=== PATIENT | female | born 1970 | race Caucasian/White ===

== ENCOUNTER → 2017-01-01 | Outpatient (CLI) | payer BC, MEDICAID, OTHER | LOC: MW.CHOBGYN 13:21 | PROVIDERS: ATTEND Nurse Practitioner Women's Health | DX: R10.2 Pelvic and perineal pain (principal); R10.31 Right lower quadrant pain; R10.32 Left lower quadrant pain; L40.0 Psoriasis vulgaris; M25.529 Pain in unspecified elbow; M25.569 Pain in unspecified knee | CPT/HCPCS: 36415; 81001; 85025; 85652; 86038; 86140; 86200; 86430; 93005 ==

== ENCOUNTER → 2017-01-02 | Outpatient (CLI) | payer OTHER, BC ==
--- NOTE | 2017-01-29 10:48 | BTN ---
SERVICE DATE: 01/29/2017 PATIENT #: [id number] #: NOT DICTATED IDENTIFICATION: Arin is a 47-year-old female, who is here today for a followup visit. I last saw her in August. CURRENT MEDICATIONS: Effexor XR 300 mg a day, clonazepam 1 mg b.i.d. p.r.n., Abilify 10 mg a day and Seroquel 50 mg at bedtime. ALLERGIES: She has an allergy to penicillin. CHIEF COMPLAINT: "Not so good." HISTORY OF PRESENT ILLNESS: Arin states that over the last month or two she started to feel more depressed, having a hard time getting things done, no energy, just wanting to sleep all the time. In the last 1-2 weeks, she has just been crying a lot. She feels that she needs something for the depression. Her PHQ-9 score is 25. RODNEY- 7 score is 17. She does not feel so anxious or that she has anxiety so much that she just feels very depressed. No suicidal or homicidal ideation. She is currently caring for two grandchildren ages 2 and 7 and then her two other children, ages 11 and 12, so she is busy all day long and she said it makes hard when she is depressed. She sleeps well. She said she sleeps too much. REVIEW OF SYSTEMS: No major illnesses. She does take Celebrex for chronic pain as well as she has an ointment that she uses for psoriasis when it is active and she also has some GERD. PHYSICAL EXAMINATION: VITAL SIGNS: Blood pressure is 124/71, heart rate is 85, respirations 16, temperature 98.1, weight is 202.8 pounds, height 70 inches. GENERAL APPEARANCE: Arin is a well-developed, well-nourished woman, who appears her stated age. She is very well groomed. Gait and station are normal. Her speech is clear and appropriate. I do not see any perseverating. Her thought processes are logical and linear. Associations are intact. She denies hallucinations. I do not see any delusions. Her mood is down. Her affect is somewhat flat. Insight and judgment appear good. MENTAL STATUS EXAM: She is alert and oriented x3. Recent and remote memory appear intact. Attention span is fairly good. Language is good. Fund of knowledge appears adequate for developmental age. DIAGNOSES: Fountain I: Bipolar disorder, F31.30. Anxiety F41.8. Fountain II : No diagnosis. Fountain III: She has some psoriasis and chronic pain. Fountain IV: Stressors. She cannot really identify any real stressors other than she has 4 children every day that she cares for. Fountain V: Current Global Assessment of Functioning score 67. TREATMENT PLAN: In talking to Arin about all the options, we discussed Wellbutrin and she said she has taken that before with very good results. I am going to add a little Wellbutrin XL 150 mg daily to her medications. Because she is sleepy and wants to sleep all the time, I recommended that she hold the Seroquel at bedtime for now and see how she does. I want to see her back in 1 month. If she continues to get worse over the next week or two, I recommended she call me and we can maybe do some trouble shooting over the phone, otherwise I am going to see her back in 1 month. /[id number]
== END ==
LOC: MW.CHOBGYN 10:36
PROVIDERS: ATTEND Nurse Practitioner Women's Health
DX: R10.31 Right lower quadrant pain (principal); R10.32 Left lower quadrant pain; K92.1 Melena
CPT/HCPCS: 83630; 87338

== ENCOUNTER 2017-02-12 10:32 | Day surgery (SDC) | payer BC, OTHER ==
[~2017-02-12 10:32] MED LIST: Lactated Ringers 1,000 ML IV SCH
--- NOTE | 2017-02-12 11:35 | PCM.PREANE ---
Preanesthetic Assessment - Anesthesia/Transfusion/Family Hx Anesthesia History: Prior Anesthesia Without Reaction Family History of Anesthesia Reaction: No Transfusion History: No Prior Transfusion(s) - Review of Systems General: No Symptoms Pulmonary: No Symptoms Cardiovascular: No Symptoms Gastrointestinal: No symptoms Neurological: No Symptoms Other: Reports: None - Physical Assessment NPO Status Date: 02/11/17 O2 Sat by Pulse Oximetry: 96 Respiratory Rate: 16 Vital Signs: Last Vital Signs Temp 36.8 C 02/12/17 10:44 Pulse 87 02/12/17 10:44 Resp 16 02/12/17 10:44 BP 137/63 02/12/17 10:44 Pulse Ox 96 02/12/17 10:44 Height: 1.75 m Weight: 89.358 kg ASA Class: 2 Mental Status: Alert & Oriented x3 Airway Class: Mallampati = 2 Dentition: Reports: Bridge (lower central incisors) ROM/Head Extension: Full Lungs: Clear to auscultation, Normal respiratory effort Cardiovascular: Regular Rate, Regular Rhythm - Allergies Allergies/Adverse Reactions: Allergies Allergy/AdvReac Type Severity Reaction Status Date / Time codeine Allergy Nausea Verified 06/10/16 17:36 Penicillins Allergy Rash Verified 06/10/16 17:36 - Anesthesia Plan Pre-Op Medication Ordered: None - Acknowledgements Anesthesia Type Planned: MAC Pt an Appropriate Candidate for the Planned Anesthesia: Yes Alternatives and Risks of Anesthesia Discussed w Pt/Guardian: Yes Pt/Guardian Understands and Agrees with Anesthesia Plan: Yes Additional Comments: PMH: bipolar, gerd, psoriasis, migraine, smoker. 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: Musculoskeletal History: Reports: Arthritis, Fracture Other Musculoskeletal History: right wrist Neurological History: Reports: Migraines Psychiatric History: Reports: Anxiety, Bipolar, Depression Endocrine/Metabolic History: Reports: None Hematologic History: Reports: Anemia Immunologic History: Reports: None Oncologic (Cancer) History: Reports: None Dermatologic History: Reports: Eczema, Psoriasis Other Dermatologic History: elbows and legs - Infectious Disease History Infectious Disease History: Reports: Chicken Pox - Past Surgical History Head Surgeries/Procedures: Reports: None HEENT Surgical History: Reports: None Cardiovascular Surgical History: Reports: None Respiratory Surgical History: Reports: None GI Surgical History: Reports: Appendectomy, Colonoscopy Female Surgical History: Reports: Breast Biopsy, D&C, Hysterectomy, Salpingo- Oophorectomy Neurological Surgical History: Reports: None Musculoskeletal Surgical History: Reports: None Oncologic Surgical History: Reports: None Dermatological Surgical History: Reports: None - SUBSTANCE USE Smoking Status *Q: Current Every Day Smoker Tobacco Use Within Last Twelve Months: Cigarettes Second Hand Smoke Exposure: Yes Days Per Week of Alcohol Use: 2 Number of Drinks Per Day: 2 Total Drinks Per Week: 4 Recreational Drug Use History: No - HOME MEDS Home Medications: Home Meds Venlafaxine [Effexor XR] 2 tab PO QAM 01/23/16 [History] QUEtiapine Fumarate [Seroquel] 50 mg PO BEDTIME 02/07/16 [History] ARIPiprazole [Abilify] 10 mg PO DAILY 02/09/17 [History] Celecoxib 200 mg PO DAILY 02/09/17 [History] ClonazePAM [KlonoPIN] 1 tab PO BID PRN 02/09/17 [History] Pantoprazole Sodium 40 mg PO DAILY 02/09/17 [History] Triamcinolone Acetonide [Triamcinolone Acetonide 0.5%] 1 applic TOP BID PRN [History] Fluocinonide [Lidex 0.05% Crm] 1 applic TOP ASDIRECTED 02/10/17 [History] - CURRENT (IN HOUSE) MEDS Current Meds: Current Medications Lactated Ringer's (Ringers, Lactated) 1,000 mls @ 125 mls/hr IV ASDIRECTED [facility] Last Admin: 02/12/17 10:55 Dose: 125 mls/hr
[2017-02-12] MEDS ORDERED: Propofol 200 MG/20 ML SDV ONE ×2 (11:57→12:48)
[2017-02-12] MEDS ORDERED: Lidocaine 2% 5 ML SDV ONE (11:57)
[2017-02-12] MEDS ORDERED: fentaNYL 100 MCG/2 ML SDV ONE ×2 (11:58→12:10)
[2017-02-12] MEDS ORDERED: Neostigmine Methylsulfate 1 MG/ML 5 ML Syringe ONE (12:04)
--- NOTE | 2017-02-12 13:10 | PCM.OPNOTE ---
- General Post-Op/Procedure Note Date of Surgery/Procedure: 02/12/17 Operative Procedure(s): egd w bx. colonoscopy w bx Findings: see dict [id number] dxc Pre Op Diagnosis: abd pain Post-Op Diagnosis: gastritis/gerd and hemorrhoid Anesthesia Technique: Moderate sedation Primary Surgeon: Nadir Carranza Pathology: egd bx random colon bx Complications: None Condition: Good
--- NOTE | 2017-02-12 13:27 | PCM.POSTAN ---
POST ANESTHESIA ASSESSMENT - MENTAL STATUS Mental Status: alert, oriented - RESPIRATORY Respiratory Status: respiratory rate WNL, airway patent, O2 saturation stable - CARDIOVASCULAR CV Status: pulse rate WNL, blood pressure stable - GASTROINTESTINAL GI Status: no symptoms - PAIN Pain Score: 0 - POST OP HYDRATION Hydration Status: adequate & stable
--- NOTE | 2017-02-12 13:38 | OR ---
SURGEON: Nadir Carranza MD DATE OF PROCEDURE: 02/12/2017 PREOPERATIVE DIAGNOSES: Abdominal pain and change in bowel habits. POSTOPERATIVE DIAGNOSES: Acid reflux and gastritis and hemorrhoids. PROCEDURES PERFORMED: 1. Esophagogastroduodenoscopy with biopsy. 2. Colonoscopy with biopsy. DESCRIPTION OF PROCEDURE: EGD: The patient was taken to the endoscopy room, and with the [employer]ROL POLICE SERGEANT, Diprivan was administered. A well-lubricated EGD scope was gently inserted through the oropharynx, down the esophagus, passing through the gastroesophageal junction, into the stomach. The mucosa was examined upon the passage. Any etiology will be noted. Once in the stomach, we continued to advance to the distal antrum, passed through the pylorus into the second portion of the duodenum. Again, the mucosa was examined for any abnormality and etiology. The scope was then retrieved back to the stomach and then retroflexed to look at the fundus of the stomach. If a biopsy was indicated, we will biopsy the antrum, body, and gastroesophageal junction. The air will be sucked out while the scope is retrieved to reduce the patient's discomfort. The patient tolerated the procedure well. There were no intraoperative complications. Dr. Carranza was present through the whole procedure. Prior to surgery, a time-out had been called, the patient identified, procedure identified and antibiotic administered. Colonoscopy: The patient was taken to the endoscopy room. A time out was called, patient identified, and procedure identified. Diprivan was then administrated. Patient went from awake to sleep, hearing doctor talking or door closing is normal. Perineum inspection and digital examination were then performed. A well-lubricated colonoscope was gently inserted through the rectum, advanced past the rectosigmoid junction, the descending colon, splenic flexure, transverse colon, hepatic flexure, ascending colon, arrived to the cecum. Cecum was identified as dictated in the finding. Then the scope was carefully withdrawn while attention was paid to the mucosal surface for any abnormality. Air will be sucked out during the scope withdrawal. At the rectum, retroflexed to examine any rectal diseases, fistula or hemorrhoids. During mucosal examination, random bx for abd pain performed. Patient tolerated procedure well. There were no intraoperative complications, and Dr. Carranza was present throughout the whole procedure. FINDINGS: EGD: 1. The patient is easily sedated with [employer]ROL POLICE SERGEANT and Diprivan. The patient is soundly snoring. 2. The patient's oropharynx and proximal esophagus was free of disease and distal esophagus at GE junction at 40, shows moderate amount of salmon- colored change consistent with acid reflux and little bit inflamed, consistent with esophagitis. The stomach rugae is normal in appearance. There is no bile, food, or blood in the stomach, rugae is normal in appearance. Antrum was slightly inflamed and there was no ulceration of blood observed and duodenum was grossly normal in appearance and the scope retrieved back to the stomach and then retroflexed to look at the fundus of stomach, there is no hiatal hernia or other etiology. Biopsy was done at antrum, body, GE junction at 40 and sucked out the air while scope pulling out. Colonoscopy: 1. The patient is easily sedated with [employer] POLICE SERGEANT and Diprivan. The patient is soundly snoring. 2. Bowel prep is left to be desirable. There were a couple of stool ball, semi-formed stool ball and moderate amount of liquid stool, but this is a compromised study. The patient's colon was rather straight forward. Cecum indicated by ileocecal fold, one-to-one indentation, appendix orifice, and light immittance and mucosa examined upon scope pulling out. The patient does not have diverticulosis, polyp, mass, growth, inflammation, stricture, ulceration, bleeding, AV malformation, none of those. The patient has moderate internal hemorrhoid and no external hemorrhoids. Random biopsy was done for pain. The patient would benefit from repeat colonoscopy 10 years from today or if the biopsy results all clinical situation suggests otherwise. The patient would benefit from repeat colonoscopy 10 years from today. As always, thank you for the kind referral. ASHLEY STANTON /[id number] DESHAWN
--- NOTE | 2017-02-12 14:00 | PCM48HPAN ---
Post Anesthesia Note - EVALUATION WITHIN 48HRS OF ANESTHETIC Vital Signs in Normal Range: Yes Patient Participated in Evaluation: Yes Respiratory Function Stable: Yes Airway Patent: Yes Cardiovascular Function Stable: Yes Hydration Status Stable: Yes Pain Control Satisfactory: Yes Nausea and Vomiting Control Satisfactory: Yes Mental Status Recovered: Yes
[2017-02-12 14:52] VITALS: BP 137/69
== END 2017-02-12 13:55 | disposition home or self-care (01) ==
LOC: MW.SDS 10:32
PROVIDERS: ATTEND Surgery
PROC: 0DB48ZX Excision of Esophagogastric Junction, Via Natural or Artificial Opening Endoscopic, Diagnostic (ICD-10-PCS; principal; 2017-02-12)
PROC: 0DB68ZX Excision of Stomach, Via Natural or Artificial Opening Endoscopic, Diagnostic (ICD-10-PCS; 2017-02-12)
PROC: 0DBE8ZX Excision of Large Intestine, Via Natural or Artificial Opening Endoscopic, Diagnostic (ICD-10-PCS; 2017-02-12)
DX: K29.50 Unspecified chronic gastritis without bleeding (principal); K21.0 Gastro-esophageal reflux disease with esophagitis; K64.8 Other hemorrhoids; M19.90 Unspecified osteoarthritis, unspecified site; J40 Bronchitis, not specified as acute or chronic; F32.9 Major depressive disorder, single episode, unspecified; F17.210 Nicotine dependence, cigarettes, uncomplicated; G43.909 Migraine, unspecified, not intractable, without status migrainosus; F41.9 Anxiety disorder, unspecified; Z88.0 Allergy status to penicillin; Z88.5 Allergy status to narcotic agent; Z79.899 Other long term (current) drug therapy; Z90.49 Acquired absence of other specified parts of digestive tract; Z90.710 Acquired absence of both cervix and uterus; Z90.722 Acquired absence of ovaries, bilateral; Z90.79 Acquired absence of other genital organ(s); Z98.890 Other specified postprocedural states
CPT/HCPCS: 43239; 45380; J3010; J7120; 00740; 88305; 88312; J2704

== ENCOUNTER 2017-06-01 17:54 | Emergency (ER) | payer BC, OTHER ==
--- NOTE | 2017-06-01 18:42 | EDM.PDOC ---
ED HPI GENERAL MEDICAL PROBLEM - General Chief Complaint: Lower Extremity Injury/Pain Stated Complaint: PT HURT RT FOOT Time Seen by Provider: 06/01/17 18:40 Source of Information: Reports: Patient History Limitations: Reports: No Limitations - History of Present Illness INITIAL COMMENTS - FREE TEXT/NARRATIVE: HISTORY AND PHYSICAL: []37-year-old female presenting with right heel pain History of Present Illness: []Patient complains of pain pain to her heel but it does extend up to the ball of her foot as well Review of Systems: As per history of present illness and below otherwise all systems reviewed and negative. Past medical history: As per history of present illness and as reviewed below otherwise noncontributory. Surgical history: As per history of present illness and as reviewed below otherwise noncontributory. Social history: No reported history of drug or alcohol abuse. Family history: As per history of present illness and as reviewed below otherwise noncontributory. Physical exam: Alert and oriented female who is answering questions appropriately in full sentences without any shortness of breath she is nontoxic in appearance. HEENT: Atraumatic, normocehpalic, pupils reactive, negative for conjunctival pallor or scleral icterus, mucous membranes moist, throat clear, neck supple, nontender, trachea midline. Lungs: Clear to auscultation, breath sounds equal bilaterally, chest non tender. Heart: S1S2, regular, negative for clicks, rubs, or JVD. Abdomen: Soft, nondistended, nontender. Negative for masses or hepatossplenmegaly. Negative for costovertebral tenderness. Pelvis: Stable nontender. Genitourinary: Deferred. Rectal: Deferred Extremities: Atraumatic, negative for cords or calf pain. Exquisite pain with light palpation to the center of her heel. Neurovascular unremarkable. Neuro: Awake, alert, oriented. Cranial nerves II through XII unremarkable. Cerebellum unremarkable. Motor and sensory unremarkable throughout. Exam nonfocal. Diagnostics: [X-ray CALCANEAL right foot] Therapeutics: [] Impression: [Calcaneal spur] Plan: []Discharged to home Hydrocodone Refer to podiatry Definitive disposition and diagnosis as appropriate pending reevaluation and review of above. Right Heel Pain Score (Numeric/FACES): 9 - Related Data Allergies Allergy/AdvReac Type Severity Reaction Status Date / Time codeine Allergy Nausea Verified 06/01/17 18:47 Penicillins Allergy Rash Verified 06/01/17 18:47 Home Meds: Home Meds Venlafaxine [Effexor XR] 2 tab PO QAM 01/23/16 [History] QUEtiapine Fumarate [Seroquel] 50 mg PO BEDTIME 02/07/16 [History] ARIPiprazole [Abilify] 10 mg PO DAILY 02/09/17 [History] Celecoxib 200 mg PO DAILY 02/09/17 [History] ClonazePAM [KlonoPIN] 1 tab PO BID PRN 02/09/17 [History] Pantoprazole Sodium 40 mg PO DAILY 02/09/17 [History] Triamcinolone Acetonide [Triamcinolone Acetonide 0.5%] 1 applic TOP BID PRN [History] Fluocinonide [Lidex 0.05% Crm] 1 applic TOP ASDIRECTED 02/10/17 [History] Past Medical History Other HEENT History: has permanent lower dental retainer Cardiovascular History: Reports: None Respiratory History: Reports: None Gastrointestinal History: Reports: GERD Genitourinary History: Reports: None 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: Musculoskeletal History: Reports: Arthritis, Fracture Other Musculoskeletal History: right wrist Neurological History: Reports: Migraines Psychiatric History: Reports: Anxiety, Bipolar, Depression Endocrine/Metabolic History: Reports: None Hematologic History: Reports: Anemia Immunologic History: Reports: None Oncologic (Cancer) History: Reports: None Dermatologic History: Reports: Eczema, Psoriasis Other Dermatologic History: elbows and legs - Infectious Disease History Infectious Disease History: Reports: Chicken Pox - Past Surgical History Head Surgeries/Procedures: Reports: None HEENT Surgical History: Reports: None Cardiovascular Surgical History: Reports: None Respiratory Surgical History: Reports: None GI Surgical History: Reports: Appendectomy, Colonoscopy Female Surgical History: Reports: Breast Biopsy, D&C, Hysterectomy, Salpingo- Oophorectomy Neurological Surgical History: Reports: None Musculoskeletal Surgical History: Reports: None Oncologic Surgical History: Reports: None Dermatological Surgical History: Reports: None Social & Family History - Family History Family Medical History: Noncontributory HEENT: Reports: Cataract, Hearing Impairment Cardiac: Reports: High Cholesterol, [place] Respiratory: Reports: Asthma GI: Reports: None : Reports: UTI, Recurrent OBGYN: Reports: Musculoskeletal: Reports: None Neurological: Reports: Seizure Psychiatric: Reports: Anxiety, Bipolar, Depression Endocrine/Metabolic: Reports: Diabetes, Type I, Diabetes, type II Hematologic: Reports: Anemia Immunologic: Reports: None Dermatologic: Reports: Eczema Oncologic: Reports: Thyroid - Tobacco Use Smoking Status *Q: Current Every Day Smoker Years of Tobacco use: 30 Packs/Tins Daily: 1 Used Tobacco, but Quit: No Second Hand Smoke Exposure: Yes - Caffeine Use Caffeine Use: Reports: Coffee - Alcohol Use Days Per Week of Alcohol Use: 2 Number of Drinks Per Day: 2 Total Drinks Per Week: 4 - Recreational Drug Use Recreational Drug Use: No Drug Use in Last 12 Months: No - Living Situation & Occupation Living situation: Reports: Review of Systems - Review of Systems Review Of Systems: ROS reveals no pertinent complaints other than HPI. ED EXAM, GENERAL - Physical Exam Exam: See Below (See dictation) Course - Vital Signs Last Recorded V/S: Last Vital Signs Temp 36.4 C 06/01/17 18:10 Pulse 78 06/01/17 18:10 Resp 18 06/01/17 18:10 BP 141/63 H 06/01/17 18:10 Pulse Ox 98 06/01/17 18:10 - Orders/Labs/Meds Orders: Active Orders 24 hr Category Date Time Status Calcaneous Rt [CR] Stat Exams 06/01/17 18:37 Taken Departure - Departure Time of Disposition: 19:35 Disposition: Home, Self-Care 01 Condition: Good Clinical Impression: Calcaneal spur of right foot - Discharge Information Instructions: Pain Medicine Instructions, [id number] Referrals: PCP,None [Primary Care Provider] - Forms: ED Department Discharge Additional Instructions: The following information is given to patients seen in the emergency department who are being discharged to home. This information is to outline your options for follow-up care. We provide all patients seen in our emergency department with a follow-up referral. The need for follow-up, as well as the timing and circumstances, are variable depending upon the specifics of your emergency department visit. If you don't have a primary care physician on staff, we will provide you with a referral. We always advise you to contact your personal physician following an emergency department visit to inform them of the circumstance of the visit and for follow-up with them and/or the need for any referrals to a consulting specialist. The emergency department will also refer you to a specialist when appropriate. This referral assures that you have the opportunity for followup care with a specialist. All of these measure are taken in an effort to provide you with optimal care, which includes your followup. Under all circumstances we always encourage you to contact your private physician who remains a resource for coordinating your care. When calling for followup care, please make the office aware that this follow-up is from your recent emergency room visit. If for any reason you are refused follow-up, please contact the [facility] emergency department at and asked to speak to the emergency department charge nurse. Follow-up with podiatry [facility] - Podiatry [address] [place] [id number] Please call for an appointment Prescription written for hydrocodone/APAP 5/325 one every 4-6 hours as needed for pain #10 no refill - My Orders Last 24 Hours: My Active Orders 06/01/17 18:37 Calcaneous Rt [CR] Stat - Assessment/Plan Last 24 Hours: My Active Orders 06/01/17 18:37 Calcaneous Rt [CR] Stat
[2017-06-01 19:53] VITALS: BP 140/73
--- NOTE | 2017-06-02 10:05 | CR ---
EXAM DATE: 06/01/17 PATIENT'S AGE: 47 Patient: VAL GALLO Facility: [place], [place] Site . Site : 1970 Study: XRay Extremity Right CALCANEOUS [id number]/[id number] 7:02:35 PM Ordering Physician: Doctor Krause Final Report: INDICATION: Heel pain. TECHNIQUE: Two views of the right calcaneus. COMPARISON: None. IMPRESSION: No fracture. No destructive bony lesion is identified. Joint spaces and bony alignment are within normal limits. Small plantar calcaneal enthesophyte. Dictated by Manolo Cook MD @ 06/01/2017 7:29:12 PM Dictated by: Manolo Cook MD @ 06/01/2017 19:29:23 (Electronic Signature) Report Signed by Proxy. DESHAWN
== END 2017-06-01 19:45 | disposition home or self-care (01) ==
LOC: MW.ED 17:54
DX: M77.31 Calcaneal spur, right foot (principal); K21.9 Gastro-esophageal reflux disease without esophagitis; F17.210 Nicotine dependence, cigarettes, uncomplicated; Z88.5 Allergy status to narcotic agent; Z88.0 Allergy status to penicillin; Z79.899 Other long term (current) drug therapy
CPT/HCPCS: 73650-26-RT; 73650-RT; 99283

== ENCOUNTER 2017-06-24 14:46 | Emergency (ER) | payer BC, OTHER ==
[2017-06-24] MEDS ORDERED: Acetaminophen/HYDROcodone 325-10 MG Tab PO ONE (15:04)
--- NOTE | 2017-06-24 15:07 | EDM.PDOC ---
ED HPI GENERAL MEDICAL PROBLEM - General Chief Complaint: Respiratory Problem Stated Complaint: TROUBLE BREATHING/BACK PAIN Time Seen by Provider: 06/24/17 15:02 - History of Present Illness INITIAL COMMENTS - FREE TEXT/NARRATIVE: HISTORY AND PHYSICAL: History of present illness: Patient is 47-year-old female history of bipolar disorder presents a concern of left upper back pain it's worse with breathing and movement she does not recall any trauma she is a smoker she denies cough denies nausea vomiting fever chills denies history of DVT or PE Review of systems: As per history of present illness and below otherwise all systems reviewed and negative. Past medical history: As per history of present illness and as reviewed below otherwise noncontributory. Surgical history: As per history of present illness and as reviewed below otherwise noncontributory. Social history: No reported history of drug or alcohol abuse. Family history: As per history of present illness and as reviewed below otherwise noncontributory. Physical exam: HEENT: Atraumatic, normocephalic, pupils reactive, negative for conjunctival pallor or scleral icterus, mucous membranes moist, throat clear, neck supple, nontender, trachea midline. Lungs: Clear to auscultation, breath sounds equal bilaterally, paravertebral tenderness at the upper thoracic spine region no vertebral body or point tenderness Heart: S1S2, regular, negative for clicks, rubs, or JVD. Abdomen: Soft, nondistended, nontender. Negative for masses or hepatosplenomegaly. Negative for costovertebral tenderness. Pelvis: Stable nontender. Genitourinary: Deferred. Rectal: Deferred. Extremities: Atraumatic, negative for cords or calf pain. Neurovascular unremarkable. Neuro: Awake, alert, oriented. Cranial nerves II through XII unremarkable. Cerebellum unremarkable. Motor and sensory unremarkable throughout. Exam nonfocal. Diagnostics: Chest x-ray Therapeutics: Hydrocodone 10 mg by mouth Impression: #1 upper back pain Definitive disposition and diagnosis as appropriate pending reevaluation and review of above. - Related Data Allergies Allergy/AdvReac Type Severity Reaction Status Date / Time codeine Allergy Nausea Verified 06/01/17 18:47 Penicillins Allergy Rash Verified 06/01/17 18:47 Home Meds: Home Meds Venlafaxine [Effexor XR] 2 tab PO QAM 01/23/16 [History] QUEtiapine Fumarate [Seroquel] 50 mg PO BEDTIME 02/07/16 [History] ARIPiprazole [Abilify] 10 mg PO DAILY 02/09/17 [History] Celecoxib 200 mg PO DAILY 02/09/17 [History] ClonazePAM [KlonoPIN] 1 tab PO BID PRN 02/09/17 [History] Pantoprazole Sodium 40 mg PO DAILY 02/09/17 [History] Triamcinolone Acetonide [Triamcinolone Acetonide 0.5%] 1 applic TOP BID PRN [History] Fluocinonide [Lidex 0.05% Crm] 1 applic TOP ASDIRECTED 02/10/17 [History] Past Medical History Other HEENT History: has permanent lower dental retainer Cardiovascular History: Reports: None Respiratory History: Reports: None Gastrointestinal History: Reports: GERD Genitourinary History: Reports: None [employer]GER [employer] History: Reports: Musculoskeletal History: Reports: Arthritis, Fracture Other Musculoskeletal History: right wrist Neurological History: Reports: Migraines Psychiatric History: Reports: Anxiety, Bipolar, Depression Endocrine/Metabolic History: Reports: None Hematologic History: Reports: Anemia Immunologic History: Reports: None Oncologic (Cancer) History: Reports: None Dermatologic History: Reports: Eczema, Psoriasis Other Dermatologic History: elbows and legs - Infectious Disease History Infectious Disease History: Reports: Chicken Pox - Past Surgical History Head Surgeries/Procedures: Reports: None HEENT Surgical History: Reports: None Cardiovascular Surgical History: Reports: None Respiratory Surgical History: Reports: None GI Surgical History: Reports: Appendectomy, Colonoscopy Female Surgical History: Reports: Breast Biopsy, D&C, Hysterectomy, Salpingo- Oophorectomy Neurological Surgical History: Reports: None Musculoskeletal Surgical History: Reports: None Oncologic Surgical History: Reports: None Dermatological Surgical History: Reports: None Social & Family History - Family History Family Medical History: Noncontributory HEENT: Reports: Cataract, Hearing Impairment Cardiac: Reports: High Cholesterol, [place] Respiratory: Reports: Asthma GI: Reports: None : Reports: UTI, Recurrent OBGYN: Reports: Musculoskeletal: Reports: None Neurological: Reports: Seizure Psychiatric: Reports: Anxiety, Bipolar, Depression Endocrine/Metabolic: Reports: Diabetes, Type I, Diabetes, type II Hematologic: Reports: Anemia Immunologic: Reports: None Dermatologic: Reports: Eczema Oncologic: Reports: Thyroid - Tobacco Use Smoking Status *Q: Current Every Day Smoker Years of Tobacco use: 30 Packs/Tins Daily: 1 Used Tobacco, but Quit: No Second Hand Smoke Exposure: Yes - Caffeine Use Caffeine Use: Reports: Coffee - Alcohol Use Days Per Week of Alcohol Use: 2 Number of Drinks Per Day: 2 Total Drinks Per Week: 4 - Recreational Drug Use Recreational Drug Use: No Drug Use in Last 12 Months: No - Living Situation & Occupation Living situation: Reports: ED ROS GENERAL - Review of Systems Review Of Systems: ROS reveals no pertinent complaints other than HPI. ED EXAM, GENERAL - Physical Exam Exam: See Below (See dictation) Course - Orders/Labs/Meds Orders: Active Orders 24 hr Category Date Time Status Chest 2V [CR] Stat Exams 06/24/17 15:05 Ordered Meds: Medications Discontinued Medications Generic Name Dose Route Start Last Admin Trade Name Freq PRN Reason Stop Dose Admin Hydrocodone Bitart/Acetaminophen 1 tab 06/24/17 15:04 [place] 325-10 Mg PO 06/24/17 15:05 ONETIME ONE Departure - Departure Time of Disposition: 15:07 Disposition: Home, Self-Care 01 Condition: Good Clinical Impression: Back pain - Discharge Information Referrals: Debby Ceja, [employer]S PROGRAMMER [Primary Care Provider] - Additional Instructions: The following information is given to patients seen in the emergency department who are being discharged to home. This information is to outline your options for follow-up care. We provide all patients seen in our emergency department with a follow-up referral. The need for follow-up, as well as the timing and circumstances, are variable depending upon the specifics of your emergency department visit. If you don't have a primary care physician on staff, we will provide you with a referral. We always advise you to contact your personal physician following an emergency department visit to inform them of the circumstance of the visit and for follow-up with them and/or the need for any referrals to a consulting specialist. The emergency department will also refer you to a specialist when appropriate. This referral assures that you have the opportunity for followup care with a specialist. All of these measure are taken in an effort to provide you with optimal care, which includes your followup. Under all circumstances we always encourage you to contact your private physician who remains a resource for coordinating your care. When calling for followup care, please make the office aware that this follow-up is from your recent emergency room visit. If for any reason you are refused follow-up, please contact the [facility] emergency department at and asked to speak to the emergency department charge nurse. Ultram as prescribed continue current medications all primary doctor 1-2 days return as needed as discussed] - My Orders Last 24 Hours: My Active Orders 06/24/17 15:05 Chest 2V [CR] Stat - Assessment/Plan Last 24 Hours: My Active Orders 06/24/17 15:05 Chest 2V [CR] Stat
[2017-06-24 16:37] VITALS: BP 132/73
--- NOTE | 2017-06-25 08:31 | CR ---
EXAMINATION: Two-view chest (PA and Lateral views). HISTORY: Shortness of breath. FINDINGS: The trachea is midline. The cardiomediastinal silhouette is within normal limits. No pulmonary infilt rates, effusions or pneumothorax. Mild biapical scarring. Osseous structures appear unremarkable. IMPRESSION: No acute cardiopulmonary process.
== END 2017-06-24 16:32 | disposition home or self-care (01) ==
LOC: MW.ED 14:46
DX: M54.6 Pain in thoracic spine (principal); K21.9 Gastro-esophageal reflux disease without esophagitis; F31.9 Bipolar disorder, unspecified; Z86.2 Personal history of diseases of the blood and blood-forming organs and certain disorders involving the immune mechanism; F17.210 Nicotine dependence, cigarettes, uncomplicated; Z79.899 Other long term (current) drug therapy; Z88.0 Allergy status to penicillin; Z88.5 Allergy status to narcotic agent
CPT/HCPCS: 71020; 99283; A9270

== ENCOUNTER 2017-09-22 16:51 | Emergency (ER) | payer BC, OTHER ==
[2017-09-22] MEDS ORDERED: Ondansetron 4 MG Tab.DIS PO ONE (17:21)
[2017-09-22] MEDS ORDERED: Ketorolac 60 MG/2 ML SDV IM ONE (17:33)
--- NOTE | 2017-09-22 17:34 | EDM.PDOC ---
ED HPI GENERAL MEDICAL PROBLEM - General Chief Complaint: Upper Extremity Injury/Pain Stated Complaint: PT FELL AND HURT LT ELBOW Time Seen by Provider: 09/22/17 17:34 Source of Information: Reports: Patient History Limitations: Reports: No Limitations - History of Present Illness INITIAL COMMENTS - FREE TEXT/NARRATIVE: HISTORY AND PHYSICAL: []47-year-old female presenting with injury to her left elbow History of Present Illness: []Patient was walking and fell slipped on the ice striking her left elbow Review of Systems: As per history of present illness and below otherwise all systems reviewed and negative. Past medical history: As per history of present illness and as reviewed below otherwise noncontributory. Surgical history: As per history of present illness and as reviewed below otherwise noncontributory. Social history: No reported history of drug or alcohol abuse. Family history: As per history of present illness and as reviewed below otherwise noncontributory. Physical exam: Alert and oriented denies any loss of consciousnes. Answers questions appropriately in full sentences without any shortness of breath HEENT: Atraumatic, normocehpalic, pupils reactive, negative for conjunctival pallor or scleral icterus, mucous membranes moist, throat clear, neck supple, nontender, trachea midline. Lungs: Clear to auscultation, breath sounds equal bilaterally, chest non tender. Heart: S1S2, regular, negative for clicks, rubs, or JVD. Abdomen: Soft, nondistended, nontender. Negative for masses or hepatossplenmegaly. Negative for costovertebral tenderness. Pelvis: Stable nontender. Genitourinary: Deferred. Rectal: Deferred Extremities: Edema is noted to the left epicondylar area,full range of motion is present, negative for cords or calf pain. Neurovascular unremarkable. Neuro: Awake, alert, oriented. Cranial nerves II through XII unremarkable. Cerebellum unremarkable. Motor and sensory unremarkable throughout. Exam nonfocal. Diagnostics: [xray inconclusive] Therapeutics: [sling] Impression: [contusion joint effusion] Plan: [Discharged to home with close follow-up See your provider in 2 days for reevaluation If not improving may need referral to orthopedics] Definitive disposition and diagnosis as appropriate pending reevaluation and review of above. Onset: Today, Sudden Left Elbow Pain Score (Numeric/FACES): 6 - Related Data Allergies Allergy/AdvReac Type Severity Reaction Status Date / Time codeine Allergy Nausea Verified 09/22/17 17:13 Penicillins Allergy Rash Verified 09/22/17 17:13 Home Meds: Home Meds Venlafaxine [Effexor XR] 2 tab PO QAM 01/23/16 [History] QUEtiapine Fumarate [Seroquel] 50 mg PO BEDTIME 02/07/16 [History] ARIPiprazole [Abilify] 10 mg PO DAILY 02/09/17 [History] Celecoxib 200 mg PO DAILY 02/09/17 [History] ClonazePAM [KlonoPIN] 1 tab PO BID PRN 02/09/17 [History] Pantoprazole Sodium 40 mg PO DAILY 02/09/17 [History] Triamcinolone Acetonide [Triamcinolone Acetonide 0.5%] 1 applic TOP BID PRN [History] Fluocinonide [Lidex 0.05% Crm] 1 applic TOP ASDIRECTED 02/10/17 [History] Past Medical History Other HEENT History: has permanent lower dental retainer Cardiovascular History: Reports: None Respiratory History: Reports: None Gastrointestinal History: Reports: GERD Genitourinary History: Reports: None [employer] History: Reports: Musculoskeletal History: Reports: Arthritis, Fracture Other Musculoskeletal History: right wrist Neurological History: Reports: Migraines Psychiatric History: Reports: Anxiety, Bipolar, Depression Endocrine/Metabolic History: Reports: None Hematologic History: Reports: Anemia Immunologic History: Reports: None Oncologic (Cancer) History: Reports: None Dermatologic History: Reports: Eczema, Psoriasis Other Dermatologic History: elbows and legs - Infectious Disease History Infectious Disease History: Reports: Chicken Pox - Past Surgical History Head Surgeries/Procedures: Reports: None HEENT Surgical History: Reports: None Cardiovascular Surgical History: Reports: None Respiratory Surgical History: Reports: None GI Surgical History: Reports: Appendectomy, Colonoscopy Female Surgical History: Reports: Breast Biopsy, D&C, Hysterectomy, Salpingo- Oophorectomy Neurological Surgical History: Reports: None Musculoskeletal Surgical History: Reports: None Oncologic Surgical History: Reports: None Dermatological Surgical History: Reports: None Social & Family History - Family History Family Medical History: Noncontributory HEENT: Reports: Cataract, Hearing Impairment Cardiac: Reports: High Cholesterol, [place] Respiratory: Reports: Asthma GI: Reports: None : Reports: UTI, Recurrent OBGYN: Reports: Musculoskeletal: Reports: None Neurological: Reports: Seizure Psychiatric: Reports: Anxiety, Bipolar, Depression Endocrine/Metabolic: Reports: Diabetes, Type I, Diabetes, type II Hematologic: Reports: Anemia Immunologic: Reports: None Dermatologic: Reports: Eczema Oncologic: Reports: Thyroid - Tobacco Use Smoking Status *Q: Never Smoker Years of Tobacco use: 30 Packs/Tins Daily: 1 Used Tobacco, but Quit: No Second Hand Smoke Exposure: No - Caffeine Use Caffeine Use: Reports: None Caffeine Use Comment: daily - Alcohol Use Days Per Week of Alcohol Use: 2 Number of Drinks Per Day: 2 Total Drinks Per Week: 4 - Recreational Drug Use Recreational Drug Use: No Drug Use in Last 12 Months: No - Living Situation & Occupation Living situation: Reports: Review of Systems - Review of Systems Review Of Systems: ROS reveals no pertinent complaints other than HPI. ED EXAM, GENERAL - Physical Exam Exam: See Below (See dictation) Course - Vital Signs Last Recorded V/S: Last Vital Signs Temp 37.0 C 09/22/17 17:15 Pulse 78 09/22/17 17:15 Resp 18 09/22/17 17:15 BP Pulse Ox 97 09/22/17 17:15 - Orders/Labs/Meds Orders: Active Orders 24 hr Category Date Time Status Elbow Min 3V Lt [CR] Stat Exams 09/22/17 16:58 Taken Meds: Medications Discontinued Medications Generic Name Dose Route Start Last Admin Trade Name Sebastiánq PRN Reason Stop Dose Admin Ketorolac Tromethamine 60 mg 09/22/17 17:33 09/22/17 17:39 Toradol IM 09/22/17 17:34 60 mg ONETIME ONE Administration Ondansetron HCl 4 mg 09/22/17 17:21 09/22/17 17:24 Zofran Odt PO 09/22/17 17:22 4 mg ONETIME ONE Administration Departure - Departure Time of Disposition: 18:20 Disposition: Home, Self-Care 01 Condition: Good Clinical Impression: Contusion Joint effusion of elbow Qualifiers: Laterality: left Qualified Code(s): M25.422 - Effusion, left elbow - Discharge Information Instructions: How to Use a Sling, [id number] Referrals: PCP,None [Primary Care Provider] - Forms: ED Department Discharge Additional Instructions: The following information is given to patients seen in the emergency department who are being discharged to home. This information is to outline your options for follow-up care. We provide all patients seen in our emergency department with a follow-up referral. The need for follow-up, as well as the timing and circumstances, are variable depending upon the specifics of your emergency department visit. If you don't have a primary care physician on staff, we will provide you with a referral. We always advise you to contact your personal physician following an emergency department visit to inform them of the circumstance of the visit and for follow-up with them and/or the need for any referrals to a consulting specialist. The emergency department will also refer you to a specialist when appropriate. This referral assures that you have the opportunity for followup care with a specialist. All of these measure are taken in an effort to provide you with optimal care, which includes your followup. Under all circumstances we always encourage you to contact your private physician who remains a resource for coordinating your care. When calling for followup care, please make the office aware that this follow-up is from your recent emergency room visit. If for any reason you are refused follow-up, please contact the [facility] emergency department at and asked to speak to the emergency department charge nurse. Follow-up with your primary care in the next 2 days Sling for comfort Tylenol or Motrin [id number] as recommended and discussed - My Orders Last 24 Hours: My Active Orders 09/22/17 16:58 Elbow Min 3V Lt [CR] Stat - Assessment/Plan Last 24 Hours: My Active Orders 09/22/17 16:58 Elbow Min 3V Lt [CR] Stat
[2017-09-22 18:41] VITALS: BP 136/60
--- NOTE | 2017-09-23 08:57 | CR ---
EXAM DATE: 09/22/17 PATIENT'S AGE: 47 Patient: VAL GALLO Facility: [place], [place] Site . Site : [id number] Study: XRay Extremity Left Elbow-09/22/2017 5:47:09 PM Ordering Physician: Doctor Krause Final Report: INDICATION: Pain fell 3 views of the left elbow. FINDINGS: There is presence of an elbow effusion. There is normal alignment. No definite acute fracture is identified. Circumscribed ossified superficial body adjacent to the elbow, nonspecific. Impression : 1. No acute fractures visualized. There is presence of a joint effusion. Occult fracture is not completely excluded. Could consider conservative treatment and reimaging as clinically indicated. Dictated by Kerry Azul MD @ Sep 22 2017 6:12PM (Electronic Signature) Report Signed by Proxy. DESHAWN
== END 2017-09-22 18:35 | disposition home or self-care (01) ==
LOC: MW.ED 16:51
DX: S50.02XA Contusion of left elbow, initial encounter (principal); K21.9 Gastro-esophageal reflux disease without esophagitis; W00.0XXA Fall on same level due to ice and snow, initial encounter; Z88.5 Allergy status to narcotic agent; Z88.0 Allergy status to penicillin; Z79.899 Other long term (current) drug therapy
CPT/HCPCS: 73080; 96372; 99283; A9270; J1885